=== PATIENT | female | born 1990 | race Two or more races ===

== ENCOUNTER 2022-10-23 20:16 | Emergency (ER) | payer SELFPAY ==
[2022-10-23 21:28] LABS: BASOPHILS ABSOLUTE AUTO 0.06 K/mm3 (0.01-0.08); BASOPHILS PERCENT AUTO 0.4 % (0.1-1.2); EOSINOPHILS ABSOLUTE AUTO 0.23 K/mm3 (0.04-0.36); EOSINOPHILS PERCENT AUTO 1.6 (0.7-5.8); HEMOGLOBIN 13.7 gm/dl (11.2-15.7); IMMATURE GRAN ABSOLUTE AUTO 0.03 K/mm3 (0.00-0.10); IMMATURE GRAN PERCENT AUTO 0.2 % (<=1.0); LYMPHOCYTES ABSOLUTE AUTO 2.84 K/mm3 (1.18-3.74); LYMPHOCYTES PERCENT AUTO 19.4 % (19.3-51.7); MEAN CORPUSCULAR HEMOGLOBIN 30.4 pg (25.6-32.2); MEAN CORPUSCULAR HGB CONC 33.4 g/dl (32.2-35.5); MEAN CORPUSCULAR VOLUME 90.9 fl (79.4-94.8); MEAN PLATELET VOLUME 10.5 fl (9.4-12.3); MONOCYTES ABSOLUTE AUTO 0.93 K/mm3 (0.24-0.36); MONOCYTES PERCENT AUTO 6.4 % (4.7-12.5); NEUTROPHILS ABSOLUTE AUTO 10.53 K/mm3 (1.56-6.13); PLATELET COUNT,PLT 403 K/mm3 (182-369); RED BLOOD CELL COUNT 4.51 M/mm3 (3.98-5.22); WHITE BLOOD CELL COUNT,WBC 14.62 K/mm3 (3.98-10.04)
[2022-10-23] MEDS ORDERED: Morphine 4 MG/ML Syringe IVPUSH ONE (21:29)
[2022-10-23] MEDS ORDERED: Ondansetron 4 MG/2 ML SDV IVPUSH ONE (21:29)
[2022-10-23] MEDS ORDERED: Naloxone 0.4 MG/ML SDV IVPUSH PRN (21:29)
[2022-10-23] MEDS ORDERED: Lactated Ringers 1,000 ML IV ONE (21:30)
[2022-10-23 22:00] LABS: A/G RATIO 0.9 (1-2); ALANINE AMINOTRANSFERASE,ALT 25 U/L (14-59); ALBUMIN 3.7 g/dl (3.4-5.0); ALKALINE PHOSPHATASE 106 U/L (46-116); ANION GAP 13.7 (5-15); ASPARTATE AMNIOTRANSFERASE,AST 15 U/L (15-37); BILIRUBIN TOTAL 0.3 mg/dL (0.2-1.0); BLOOD UREA NITROGEN,BUN 18 mg/dL (7-18); BUN/CREATININE RATIO 22.5 (14-18); CARBON DIOXIDE,CO2 26 mEq/L (21-32); CHLORIDE,CL 102 mEq/L (98-107); CREATININE 0.8 mg/dL (0.55-1.02); EST CRCL DRUG DOSING (CG) 92.99 mL/min; ESTIMATED GFR 101 mL/min (>60); GLUCOSE RANDOM 148 mg/dL (70-99); POTASSIUM,K 3.7 mEq/L (3.5-5.1); PROTEIN TOTAL,TP 7.7 g/dl (6.4-8.2); SODIUM,NA 138 mEq/L (136-145); TSH 3.152 uIU/mL (0.358-3.74)
[2022-10-23 22:01] LABS: HCG QUANTITATIVE < 1.0 mIU/mL
[2022-10-23 23:18] LABS: APPEARANCE,URINE CLEAR (Clear); BILIRUBIN,URINE NEGATIVE (Negative); COLOR,URINE LIGHT YELLOW (Yellow); GLUCOSE,URINE NEGATIVE (Negative); KETONES,URINE NEGATIVE (Negative); LEUKOCYTE ESTERASE,URINE TRACE (Negative); NITRITE,URINE NEGATIVE (Negative); OCCULT BLOOD,URINE 1+ (Negative); PH,URINE 6.5 (5.0-8.0); PROTEIN,URINE NEGATIVE (Negative); UROBILINOGEN,URINE 0.2 (0.2-1.0)
[2022-10-23 23:31] LABS: BACTERIA,URINE FEW /hpf (FEW); MUCUS,URINE FEW /hpf (FEW); RBC,URINE 0-5 /hpf (0-5); WBC,URINE 0-5 /hpf (0-5)
[2022-10-23] MEDS ORDERED: Ketorolac 30 MG/ML SDV IVPUSH ONE (23:58)
== END 2022-10-24 01:55 | disposition home or self-care (01) ==
LOC: JD.ED 20:16
DX: R10.31 Right lower quadrant pain (principal); R10.32 Left lower quadrant pain; E86.0 Dehydration; R91.1 Solitary pulmonary nodule
CPT/HCPCS: 36415; 74176; 80053; 81001; 83605; 83690; 84443; 84702; 85025; 96361; 96374; 96375; 99284; J1885; J2270; J2405; J7120

== ENCOUNTER 2023-07-24 19:38 | Inpatient (IN) | payer SELFPAY ==
[~2023-07-24 19:38] MED LIST: Bupivacaine 0.25% 10 ML SDV ONE
[2023-07-24] MEDS ORDERED: Acetaminophen 325 MG Tab PO PRN (21:03)
[2023-07-24] MEDS ORDERED: Sodium Chloride 0.9% 10 ML Syringe FLUSH PRN (21:03)
[2023-07-24] MEDS ORDERED: Nalbuphine 10 MG/ML Syringe IVPUSH PRN (21:03)
[2023-07-24] MEDS ORDERED: Lidocaine 1% 50 ML MDV INJECT PRN (21:03)
[2023-07-24] MEDS ORDERED: ePHEDrine 50 MG/ML SDV IVPUSH PRN (21:04)
[2023-07-24] MEDS ORDERED: Oxytocin/Lactated Ringers 30 UNIT/500 ML BAG IV SCH (21:15)
[2023-07-24 21:28] LABS: BASOPHILS PERCENT AUTO 0.2 % (0.0-1.0); EOSINOPHILS ABSOLUTE AUTO 0.1 K/mm3 (0.0-0.4); EOSINOPHILS PERCENT AUTO 0.6 % (0.0-6.0); HEMATOCRIT 35.8 % (37.0-47.0); HEMOGLOBIN 12.4 gm/dl (12.0-16.0); IMMATURE GRAN ABSOLUTE AUTO 0.08 K/mm3 (0.00-0.05); IMMATURE GRAN PERCENT AUTO 0.6 % (0.0-0.4); LYMPHOCYTES ABSOLUTE AUTO 1.8 K/mm3 (1.0-4.8); LYMPHOCYTES PERCENT AUTO 14.3 % (24.0-44.0); MEAN CORPUSCULAR HEMOGLOBIN 30.8 pg (28.0-32.0); MEAN CORPUSCULAR HGB CONC 34.6 g/dl (32.0-36.0); MEAN CORPUSCULAR VOLUME 89.1 fl (83.0-99.0); MEAN PLATELET VOLUME 11.7 fl (9.4-12.3); MONOCYTES ABSOLUTE AUTO 0.8 K/mm3 (0.0-0.8); MONOCYTES PERCENT AUTO 6.1 % (0.0-8.0); NEUTROPHILS ABSOLUTE AUTO 9.7 K/mm3 (1.8-7.7); NEUTROPHILS PERCENT AUTO 78.2 % (41.0-71.0); PLATELET COUNT,PLT 253 K/mm3 (150-400); RED BLOOD CELL COUNT 4.02 M/mm3 (4.10-5.30); WHITE BLOOD CELL COUNT,WBC 12.34 K/mm3 (3.9-11.3)
[2023-07-24] MEDS: Oxytocin/Lactated Ringers 30 UNIT/500 ML BAG IV SCH (22:28)
[2023-07-24] MEDS: Lactated Ringers 1,000 ML IV SCH (22:28)
[2023-07-25] MEDS: Bupivacaine/fentaNYL/NS 100 ML Bag EPIDUR PRN (00:01)
[2023-07-25] MEDS: fentaNYL 100 MCG/2 ML SDV EPIDUR PRN (00:02)
[2023-07-25] MEDS: diphenhydrAMINE 50 MG/ML SDV IVPUSH PRN (06:13)
[2023-07-25] MEDS ORDERED: Sodium Chloride 0.9% 10 ML Syringe FLUSH SCH (09:00)
[2023-07-25] MEDS ORDERED: Oxytocin/Lactated Ringers 30 UNIT/500 ML BAG IV SCH (15:23)
[2023-07-25] MEDS ORDERED: Simethicone 80 MG Tab.Chew PO PRN (15:23)
[2023-07-25] MEDS ORDERED: Benzocaine/Menthol 20%-0.5% Spray 78 GM Cannister TOP PRN (15:23)
[2023-07-25] MEDS ORDERED: Hydrocortisone Acetate 25 MG Supp RECTAL PRN (15:23)
[2023-07-25] MEDS ORDERED: Docusate Sodium 100 MG Cap PO PRN (15:23)
[2023-07-25] MEDS ORDERED: Witch Hazel Medicated Pads 40/Jar TOP PRN (15:23)
[2023-07-25] MEDS: Ibuprofen 600 MG Tab PO SCH (16:30)
[2023-07-25] MEDS ORDERED: Magnesium Hydroxide 400 MG/5 ML Susp 30 ML Cup PO PRN (21:00)
[2023-07-26] MEDS: Acetaminophen 325 MG Tab PO PRN (01:20)
[2023-07-26] MEDS: Prenatal Multivitamin with Calcium/Folic Acid/Iron Tab PO SCH (14:01)
== END 2023-07-26 18:30 | disposition home or self-care (01) | DRG 807 ==
LOC: JD.OB 19:38 → OBSVTOIN 07-25 12:49
PROVIDERS: ADMIT Obstetrics & Gynecology; ATTEND Obstetrics & Gynecology
PROC: 10E0XZZ Delivery of Products of Conception, External Approach (ICD-10-PCS; principal; 2023-07-25)
PROC: 0KQM0ZZ Repair Perineum Muscle, Open Approach (ICD-10-PCS; 2023-07-25)
PROC: 0U7C7ZZ Dilation of Cervix, Via Natural or Artificial Opening (ICD-10-PCS; 2023-07-25)
PROC: 10907ZC Drainage of Amniotic Fluid, Therapeutic from Products of Conception, Via Natural or Artificial Opening (ICD-10-PCS; 2023-07-25)
PROC: 3E0R3BZ Introduction of Anesthetic Agent into Spinal Canal, Percutaneous Approach (ICD-10-PCS; 2023-07-25)
PROC: 00HU33Z Insertion of Infusion Device into Spinal Canal, Percutaneous Approach (ICD-10-PCS; 2023-07-25)
DX: O24.425 Gestational diabetes mellitus in childbirth, controlled by oral hypoglycemic drugs (principal); Z37.0 Single live birth; O70.1 Second degree perineal laceration during delivery; O69.81X0 Labor and delivery complicated by cord around neck, without compression, not applicable or unspecified; O66.0 Obstructed labor due to shoulder dystocia; Z3A.39 39 weeks gestation of pregnancy; Z60.3 Acculturation difficulty
CPT/HCPCS: 36415; 51702; 59025; 59409; 82947; 85025; 86592; A9270-GY; C1726; J0665; J1200; J3010; J3490; J7120; J7999